=== PATIENT | male | born 2000 | race Caucasian/White ===

== ENCOUNTER 2022-03-31 20:04 | Emergency (ER) | payer BC ==
[~2022-03-31] VITALS: Ht 177.8 cm; Wt 65.8 kg
[2022-03-31 21:15] VITALS: BP 119/81
[2022-03-31] MEDS ORDERED: ERYT3.5O9 EACHEYE (21:27)
--- NOTE | 2022-03-31 21:31 | NUR ---
Patient discharged to home in stable condition. Written and verbal after care instructions given. Patient verbalizes understanding of instruction.
== END 2022-03-31 21:31 | disposition home or self-care (01) ==
LOC: ER 20:07
DX: H00.011 Hordeolum externum right upper eyelid (principal)

== ENCOUNTER 2022-08-27 06:32 | Emergency (ER) | payer BC ==
[~2022-08-27] VITALS: Ht 177.8 cm; Wt 67.1 kg
[~2022-08-27 06:32] MED LIST: ERYT3.5O9 EACHEYE
[2022-08-27] MEDS ORDERED: CLOT15CR27 TP (07:42)
[2022-08-27] MEDS ORDERED: MUPI22OI2 TP (07:42)
--- NOTE | 2022-08-27 07:47 | NUR ---
Patient discharged to home in stable condition. Written and verbal after care instructions given. Patient verbalizes understanding of instruction.
[2022-08-27 07:48] VITALS: BP 128/70
== END 2022-08-27 07:48 | disposition home or self-care (01) ==
LOC: ER 06:40
DX: N48.1 Balanitis (principal); Z60.2 Problems related to living alone
CPT/HCPCS: 87491; 87591

== ENCOUNTER 2022-09-17 03:38 | Emergency (ER) | payer BC ==
[~2022-09-17] VITALS: Ht 177.8 cm; Wt 70.3 kg
[~2022-09-17 03:38] MED LIST changes: +CLOT15CR27 TP; +MUPI22OI2 TP
--- NOTE | 2022-09-17 04:00 | NUR ---
BIBS FOR C/O ON AND OFF LOWER ABD PAIN. PT AAOX4, IN NAD, VITALS CHECKED.
--- NOTE | 2022-09-17 04:05 | NUR ---
URINE COLLECTED, SENT TO LAB
[2022-09-17 04:48] LABS: BILIRUBIN,URINE NEGATIVE (NEGATIVE); COLOR,URINE YELLOW (YELLOW); LEUKOCYTE ESTERASE ,URINE NEGATIVE (NEGATIVE); NITRITE, URINE NEGATIVE (NEGATIVE); PH,URINE 6.5 (5.0-8.0); PROTEIN,URINE NEGATIVE (NEGATIVE); UGLUCOSE NEGATIVE (NEGATIVE); UROBILINOGEN,URINE 0.2 EU/dL (0.2)
[2022-09-17] MEDS ORDERED: DICY10CA37 PO (05:00)
--- NOTE | 2022-09-17 05:16 | NUR ---
Patient discharged to home in stable condition. Written and verbal after care instructions given. Patient verbalizes understanding of instruction.
[2022-09-17 05:17] VITALS: BP 133/82
== END 2022-09-17 05:15 | disposition home or self-care (01) ==
LOC: ER 03:40
DX: R10.31 Right lower quadrant pain (principal); R35.0 Frequency of micturition; Z60.2 Problems related to living alone